=== PATIENT | female | born 1970 | race Caucasian/White ===

== ENCOUNTER 2023-03-25 10:00 | Outpatient (RCR) | payer MEDICARE, MEDICAID, SELFPAY | END 2023-03-25 10:28 | disposition home or self-care (01) | LOC: HO.PT 10:00 | PROVIDERS: PCP Physician Assistant Medical; Visit Provider Physician Assistant Medical | DX: M62.9 Disorder of muscle, unspecified (principal) | CPT/HCPCS: 97110; 97112; 97162 ==